=== PATIENT | male | born 1950 | race African-American/Black ===

== ENCOUNTER 2017-10-07 08:35 | Emergency (ER) | payer MEDICARE, OTHER ==
[~2017-10-07] VITALS: Ht 188 cm; Wt 91.7 kg
[~2017-10-07 08:35] MED LIST: CHOL500013 PO; FERR324T11 PO; METO-50 PO; PRAV80TA PO
[2017-10-07 08:38] VITALS: BP 100/58
--- NOTE | 2017-10-07 08:47 | NUR ---
Patient ambulated to bed 02.
--- NOTE | 2017-10-07 08:51 | NUR ---
67/M PRESENT TO ER C/O FAST HEART BEAT x 30 MINUTES AGO . PT STATES HE WAS JUST WALIKING AND STARTED FEEELING NAUSEAS. DENIES V/D OR HEART ISSUES. PT DENIES PAIN AT THIS TIME . PT STATES HE FELT THE SAME WAY ABOUT 3 YEARS AGO. AAOx4, BREATHING EVEN AND UNLABORED. ERMD NOTIFIED OF PATIENT STATUS.
--- NOTE | 2017-10-07 08:53 | NUR ---
Dr. Medina evaluating patient at bedside.
[2017-10-07] MEDS ORDERED: ADENOSINE 6 MG/2 ML VIAL IVP ONE ×2 (09:00→09:04)
--- NOTE | 2017-10-07 09:18 | NUR ---
XRAY AT BEDSIDE.
[2017-10-07 09:30] LABS: HEMATOCRIT 36.6 % (36-52); HEMOGLOBIN 11.9 g/dL (12.0-18.0); MEAN CORPUSCULAR HEMOGLOBIN 28 pg (27-31); MEAN CORPUSCULAR HGB CONC 33 g/dL (33-37); MEAN CORPUSCULAR VOLUME 86 fL (80-94); PLATELET COUNT (AUTO) 265 K/uL (140-450); RED BLOOD CELL COUNT(AUTO) 4.26 MIL/uL (4.20-6.10); RED CELL DISTRIBUTION WIDTH 12.2 % (11.6-13.7); WHITE BLOOD COUNT (AUTO) 5.5 K/uL (4.8-10.8)
[2017-10-07 09:37] LABS: ANION GAP 10.9 (8-16); CARBON DIOXIDE 27.1 mmol/L (21-32); CREATININE 1.1 mg/dL (0.7-1.3)
[2017-10-07 09:43] LABS: ALBUMIN 3.9 g/dL (3.4-5.0); MAGNESIUM 1.9 mg/dL (1.8-2.4); PHOSPHORUS 3.6 mg/dL (2.5-4.9); TOTAL BILIRUBIN 0.6 mg/dL (0.0-1.0)
[2017-10-07 09:46] LABS: EOSINOPHILS % (MANUAL) 2 % (0-4); LYMPHOCYTES % (MANUAL) 30 % (20-46); MONOCYTES % (MANUAL) 6 % (5-12)
[2017-10-07 09:51] LABS: CREATINE KINASE MB 0.4 ng/mL (0-3.6)
--- NOTE | 2017-10-07 10:00 | NUR ---
IV removed, catheter intact and site benign. Applied folded 4x4 gauze and tape to stop bleeding. PT TOELRATED PROCEDURE WELL.
[2017-10-07 10:13] VITALS: BP 125/88
--- NOTE | 2017-10-07 10:13 | NUR ---
Patient discharged with v/s stable. Written and verbal after care instructions given and explained. Patient verbalized understanding. Ambulatory with steady gait. All questions addressed prior to discharge. Advised to follow up with PMD.
== END 2017-10-07 10:13 | disposition home or self-care (01) ==
LOC: MED 08:35
DX: I47.1 Supraventricular tachycardia (principal); I10 Essential (primary) hypertension
CPT/HCPCS: 36415; 71010; 80053; 81002; 82550; 82553; 83735; 84100; 84484; 85025; 93005; 96374; 99285; J0153; J7030; Q0092

== ENCOUNTER 2017-11-18 11:09 | Emergency (ER) | payer MEDICARE, OTHER ==
[~2017-11-18] VITALS: Ht 188 cm; Wt 93.6 kg
[2017-11-18 11:11] VITALS: BP 134/92
[2017-11-18] MEDS ORDERED: ADENOSINE 6 MG/2 ML VIAL IVP ONE ×2 (11:25→12:45)
[2017-11-18] MEDS ORDERED: NACL 0.9% 1,000 ML IV ONE (12:05)
[2017-11-18 12:15] LABS: BASOPHILS # (AUTO) 0.2 K/uL (0.00-0.22); BASOPHILS % (AUTO) 2.4 % (0.0-2.0); EOSINOPHILS # (AUTO) 0.2 K/uL (0-0.4); EOSINOPHILS % (AUTO) 2.3 % (0.0-4.0); HEMATOCRIT 37.5 % (36-52); LYMPHOCYTES % (AUTO) 29.4 % (20.5-51.1); MEAN CORPUSCULAR HEMOGLOBIN 28 pg (27-31); MEAN CORPUSCULAR HGB CONC 32 g/dL (33-37); MEAN CORPUSCULAR VOLUME 86 fL (80-94); MONOCYTES # (AUTO) 0.8 K/uL (0.8-1.0); MONOCYTES % (AUTO) 11.4 % (1.7-9.3); NEUTROPHILS # (AUTO) 3.6 K/uL (1.8-7.7); NEUTROPHILS % (AUTO) 54.5 % (42.2-75.2); PLATELET COUNT (AUTO) 280 K/uL (140-450); RED BLOOD CELL COUNT(AUTO) 4.36 MIL/uL (4.20-6.10); RED CELL DISTRIBUTION WIDTH 12.1 % (11.6-13.7); WHITE BLOOD COUNT (AUTO) 6.8 K/uL (4.8-10.8)
[2017-11-18 12:35] LABS: ALBUMIN 3.9 g/dL (3.4-5.0); ANION GAP 15.3 (8-16); CARBON DIOXIDE 28.6 mmol/L (21-32); CREATININE 1.2 mg/dL (0.7-1.3); POTASSIUM 3.9 mmol/L (3.5-5.1); TOTAL BILIRUBIN 0.4 mg/dL (0.0-1.0)
--- NOTE | 2017-11-18 12:38 | NUR ---
PT ARRIVED IN ED AND WAS SEEN BY NURSE AT 1115. PT STATES HAVING PALPITATIONS AND FEELING OF FAST HR SINCE 10AM. AOX4. PT DENIES SOB, NAUSEA, VOMITING, CHEST PAIN SYSPNEA SINCE TIME OF EVENT. IV STARTED AND ADENOSINE PUSHED AT 11:25 FOLLOWED BY 20ML NS IVP. PT ON SALES TRAINEE AND PT MONITORED FOR 10 MIN AFTER RAPID IVP OF ADENOSINE. PT STATES HR SLOWED, NO CHEST PAIN, AND STATES FEELING BETTER. MD AND RN MONITORING CONINUOUS. AT THIS TIME VSS. NO ALOC, PT CONTINIUES TO DENIE SOB OR CHEST PAIN.
--- NOTE | 2017-11-18 13:05 | NUR ---
PT A&OX4. PT DENIES SOB OR CHEST PAIN. RESING IN POC. MD MORENO. CONTINUE TO MONITOR.
--- NOTE | 2017-11-18 13:10 | NUR ---
LATE ENTRY: ADENOSINE ADMINISTERED AT 11:25 FOLLOWED BY IMMEDIATE 20ML OF NS IVP, REAVALUATED AT 11:30. RN REAMINED AT BEDSIDE TO EVALUATE EFFECTIVENESS. DESIRED EFFECTIVENESS ACHIEVED WITH NO ADVERSE REACTIONS. MD AWARE. CONTINUE TO MONITOR.
[2017-11-18 14:06] VITALS: BP 142/93
--- NOTE | 2017-11-18 14:18 | NUR ---
Patient discharged with v/s stable. Continued to deny SOB, Chest pain, palpitations. A&Ox4. Written and verbal after care instructions given and explained. Patient verbalized understanding. Ambulatory with steady gait. All questions addressed prior to discharge. Advised to follow up with PMD.
== END 2017-11-18 14:18 | disposition home or self-care (01) ==
LOC: MED 11:09
DX: I47.1 Supraventricular tachycardia (principal); I10 Essential (primary) hypertension
CPT/HCPCS: 36415; 80053; 83690; 83880; 84484; 85025; 99284; J0153; 93005; J7030

== ENCOUNTER 2017-12-30 21:41 | Emergency (ER) | payer MEDICARE, OTHER ==
[~2017-12-30] VITALS: Ht 188 cm; Wt 93.2 kg
[2017-12-30 21:44] VITALS: BP 123/91
--- NOTE | 2017-12-30 21:48 | NUR ---
67/M CAME IN W C/O HEART PALPITATIONS. PT REPORTS HEART PALPITATIONS X 1 HOUR AGO, AWAKEN FROM SLEEP. PT AOX4, VERBAL. DENIES SOB/CP, REMAINS ASYMPTOMATIC. 16RR EVEN AND UNLABORED. PT REPORTS HISTORY OF SVT, HAS FOLLOW UP WITH CARDIO. PT PLACED ON EXHIBIT CLEANER. ER MD AKERS AT BEDSIDE PMH: DM, CANCER, SVT
--- NOTE | 2017-12-30 21:48 | NUR ---
Dr. Medina evaluating patient at bedside.
--- NOTE | 2017-12-30 21:48 | NUR ---
PT AMBULATED TO ER BED 1
[2017-12-30] MEDS ORDERED: ADENOSINE 6 MG/2 ML VIAL IVP ONE ×2 (21:55→21:57)
--- NOTE | 2017-12-30 21:59 | NUR ---
PT IN SVT, RATE 180S, PT AOX4, VERBAL. ADENOSINE 6MG IVP GIVEN. 2200 NSR AT 90'S
--- NOTE | 2017-12-30 21:59 | NUR ---
ADDENDUM: PT STATES " I FEEL BETTER", HR IN 90'S. ON CONTINUOUS MONITOR.
[2017-12-30 23:03] LABS: HEMATOCRIT 36.4 % (36-52); HEMOGLOBIN 11.8 g/dL (12.0-18.0); MEAN CORPUSCULAR HEMOGLOBIN 28 pg (27-31); MEAN CORPUSCULAR HGB CONC 33 g/dL (33-37); MEAN CORPUSCULAR VOLUME 86 fL (80-94); PLATELET COUNT (AUTO) 272 K/uL (140-450); RED BLOOD CELL COUNT(AUTO) 4.22 MIL/uL (4.20-6.10); RED CELL DISTRIBUTION WIDTH 12.6 % (11.6-13.7); WHITE BLOOD COUNT (AUTO) 6.3 K/uL (4.8-10.8)
[2017-12-30 23:09] LABS: LYMPHOCYTES % (MANUAL) 32 % (20-46); MONOCYTES % (MANUAL) 12 % (5-12)
[2017-12-30 23:11] LABS: ANION GAP 10.1 (8-16); CARBON DIOXIDE 28.9 mmol/L (21-32); CREATININE 0.9 mg/dL (0.7-1.3)
[2017-12-30 23:18] LABS: ALBUMIN 3.5 g/dL (3.4-5.0); PHOSPHORUS 3.5 mg/dL (2.5-4.9); TOTAL BILIRUBIN 0.4 mg/dL (0.0-1.0)
[2017-12-30 23:32] VITALS: BP 131/80
--- NOTE | 2017-12-30 23:32 | NUR ---
Patient discharged with v/s stable. Written and verbal after care instructions given and explained. Patient verbalized understanding. Ambulatory with steady gait. All questions addressed prior to discharge. Advised to follow up with PMD. IV removed, catheter intact and site benign. Applied folded 4x4 gauze and tape to stop bleeding.
[2017-12-30] MEDS ORDERED: NACL 0.9% 1,000 ML IV ONE (23:50)
== END 2017-12-30 23:32 | disposition home or self-care (01) ==
LOC: MED 21:41
DX: I47.1 Supraventricular tachycardia (principal); I10 Essential (primary) hypertension
CPT/HCPCS: 36415; 71045; 80053; 82550; 82553; 83735; 84100; 84484; 85025; 93005; 96361; 96374; 99285; J0153; J7030; Q0092

== ENCOUNTER 2018-01-20 17:24 | Emergency (ER) | payer MEDICARE, OTHER ==
[~2018-01-20] VITALS: Ht 185.4 cm; Wt 91.8 kg
[2018-01-20 17:46] VITALS: BP 101/68
--- NOTE | 2018-01-20 18:05 | NUR ---
Pt presents to ED c/o palpitations x1 day. Pt felt as he had previously when he had SVT in the past. Pt HR 166. A&Ox4. Pt states no pain, n/v, or chest pain. ERMD aware. Continue to montitor.
--- NOTE | 2018-01-20 18:06 | NUR ---
PT AMBULATED TO BED 10
[2018-01-20] MEDS ORDERED: ONDANSETRON 4 MG/2 ML VIAL IVP ONE (18:30)
[2018-01-20] MEDS ORDERED: LORazepam 2 MG/ML VIAL IVP ONE (18:30)
[2018-01-20] MEDS ORDERED: ASPIRIN 325 MG TAB PO ONE (18:30)
[2018-01-20 18:52] LABS: BASOPHILS # (AUTO) 0.2 K/uL (0.00-0.22); EOSINOPHILS # (AUTO) 0.1 K/uL (0-0.4); HEMATOCRIT 39.2 % (36-52); HEMOGLOBIN 12.2 g/dL (12.0-18.0); LYMPHOCYTES # (AUTO) 1.5 K/uL (2.0-11.5); MEAN CORPUSCULAR HEMOGLOBIN 27 pg (27-31); MEAN CORPUSCULAR HGB CONC 31 g/dL (33-37); MEAN CORPUSCULAR VOLUME 86 fL (80-94); MONOCYTES # (AUTO) 0.6 K/uL (0.8-1.0); NEUTROPHILS # (AUTO) 3.3 K/uL (1.8-7.7); PLATELET COUNT (AUTO) 301 K/uL (140-450); RED BLOOD CELL COUNT(AUTO) 4.55 MIL/uL (4.20-6.10); RED CELL DISTRIBUTION WIDTH 12.3 % (11.6-13.7); WHITE BLOOD COUNT (AUTO) 5.7 K/uL (4.8-10.8)
[2018-01-20 19:06] LABS: ANION GAP 10.8 (8-16); CARBON DIOXIDE 28.3 mmol/L (21-32); POTASSIUM 4.1 mmol/L (3.5-5.1)
[2018-01-20 19:12] LABS: ALBUMIN 3.8 g/dL (3.4-5.0); TOTAL BILIRUBIN 0.4 mg/dL (0.0-1.0)
[2018-01-20 19:17] LABS: PROTHROMBIN TIME 10.6 secs (10.8-13.4)
--- NOTE | 2018-01-20 19:18 | NUR ---
REPORT RECEIVED FROM GUS PRADO RN
[2018-01-20 19:20] LABS: FREE T4 (FREE THYROXINE) 1.07 ng/dL (0.76-1.46); MAGNESIUM 2.2 mg/dL (1.8-2.4); THYROID STIMULATING HORMONE 1.94 uIU/mL (0.34-3.74)
--- NOTE | 2018-01-20 19:25 | NUR ---
REPORT RECEIVED FROM DARCI WEBER
--- NOTE | 2018-01-20 19:28 | NUR ---
Sanjay peterson in [facility] - 01/20/18 at 1954 by TAMARA REPORT RECEIVED FROM DARCI WEBER
[2018-01-20 20:33] VITALS: BP 140/91
== END 2018-01-20 20:37 | disposition home or self-care (01) ==
LOC: MED 17:24
DX: N39.0 Urinary tract infection, site not specified (principal); I10 Essential (primary) hypertension; E03.9 Hypothyroidism, unspecified; I47.1 Supraventricular tachycardia
CPT/HCPCS: 36415; 71045; 80053; 81002; 83735; 83880; 84439; 84443; 84479; 84484; 85025; 85610; 85730; 93005; 96374; 96375; 99285; J2060; J2405; Q0092

== ENCOUNTER 2018-03-20 16:09 | Inpatient (IN) | payer OTHER, MEDICARE ==
[~2018-03-20] VITALS: Ht 188 cm; Wt 93.0 kg
[2018-03-20 16:13] VITALS: BP 183/94
[2018-03-20] MEDS ORDERED: ASPIRIN 325 MG TAB PO ONE (16:25)
[2018-03-20] MEDS ORDERED: ONDANSETRON 4 MG/2 ML VIAL IVP ONE (16:25)
--- NOTE | 2018-03-20 16:25 | NUR ---
PT AMBULATED TO BED 11
--- NOTE | 2018-03-20 16:28 | NUR ---
67 YO M WITH CO PALPITATIONS X3 DAYS. DENIES ANY CP, SOB , COUGH , FEVER AT THIS TIME . PT STATES A FLUTTER FEELING. EKG NSR WITH UNI FOCAL PVCs PER DR BATISTA. EVEN UNLABORED BREATHING, LUNGS CLEAR THROUGH OUT. HEART GALLOP NOTED UPON ASCALTATION. PT POSITIONED FOR COMFORT. ER MD MADE AWARE. WILL CONTINUE TO MONITOR.
--- NOTE | 2018-03-20 16:33 | NUR ---
Patient being evaluated by physician at bedside.
[2018-03-20] MEDS ORDERED: HYDR2TAB6 PO (16:43)
[2018-03-20] MEDS ORDERED: BICA50TA1 PO (16:43)
[2018-03-20] MEDS ORDERED: NACL 0.9% 1,000 ML IV ONE (16:50)
[2018-03-20] MEDS ORDERED: LORazepam 2 MG/ML VIAL IVP ONE (16:50)
[2018-03-20 17:33] LABS: BASOPHILS % (AUTO) 0.6 % (0.0-2.0); EOSINOPHILS # (AUTO) 0.1 K/uL (0-0.4); EOSINOPHILS % (AUTO) 1.6 % (0.0-4.0); HEMOGLOBIN 12.2 g/dL (12.0-18.0); LYMPHOCYTES # (AUTO) 1.6 K/uL (2.0-11.5); LYMPHOCYTES % (AUTO) 24.5 % (20.5-51.1); MEAN CORPUSCULAR HEMOGLOBIN 27 pg (27-31); MEAN CORPUSCULAR HGB CONC 32 g/dL (33-37); MEAN CORPUSCULAR VOLUME 85.4 fL (80-94); MONOCYTES # (AUTO) 0.6 K/uL (0.8-1.0); MONOCYTES % (AUTO) 9.6 % (1.7-9.3); NEUTROPHILS # (AUTO) 4.1 K/uL (1.8-7.7); NEUTROPHILS % (AUTO) 63.7 % (42.2-75.2); PLATELET COUNT (AUTO) 283 K/uL (140-450); RED BLOOD CELL COUNT(AUTO) 4.45 MIL/uL (4.20-6.10); RED CELL DISTRIBUTION WIDTH 13.3 % (11.6-13.7); WHITE BLOOD COUNT (AUTO) 6.4 K/uL (4.8-10.8)
[2018-03-20 17:42] LABS: BARBITURATE, URINE NEG. ng/ml (NEG <=200); BENZODIAZEPINE, URINE NEG. ng/mL (NEG <=200); CANNABINOID, URINE NEG. ng/mL (NEG <=50); COCAINE, URINE NEG. ng/mL (NEG <=300); OPIATE, URINE NEG. ng/mL (NEG <=2000); PHENCYCLIDINE SCREEN,URINE NEG. ng/mL (NEG <=25)
[2018-03-20 17:54] LABS: PROTHROMBIN TIME 10.2 secs (10.8-13.4)
--- NOTE | 2018-03-20 17:56 | NUR ---
SEMI-SCHAEFFER'S AWAKE ALERT-RESTING WITH HANDS FOLDED OVER ABDOMEN AND FEET CROSSED. DENIES CP NO HEADACHE OR SOB AT THIS TIME---AWAITS DISPO WILL CONTINUE TO MONITOR FOR ECG CHANGES
[2018-03-20 17:57] LABS: ALBUMIN 4.2 g/dL (3.4-5.0); ANION GAP 12.3 (8-16); CARBON DIOXIDE 28.6 mmol/L (21-32); CREATININE 0.9 mg/dL (0.7-1.3); POTASSIUM 3.9 mmol/L (3.5-5.1); TOTAL BILIRUBIN 0.4 mg/dL (0.0-1.0)
[2018-03-20 17:59] LABS: MAGNESIUM 2.2 mg/dL (1.8-2.4); THYROID STIMULATING HORMONE 1.16 uIU/mL (0.34-3.74)
[2018-03-20] MEDS ORDERED: NACL 0.9% 1,000 ML IV SCH (18:57)
[2018-03-20] MEDS ORDERED: MORPHINE SULFATE 2 MG/ML SYR IVP PRN (19:00)
[2018-03-20] MEDS ORDERED: DOCUSATE SODIUM 100 MG GELCAP PO PRN (19:00)
[2018-03-20] MEDS ORDERED: ACETAMINOPHEN 325 MG TAB PO PRN ×2 (19:00→19:35)
[2018-03-20] MEDS ORDERED: ONDANSETRON 4 MG/2 ML VIAL IM/IVP PRN (19:00)
[2018-03-20] MEDS ORDERED: HYDROcodone/APAP 7.5/325 MG 1 TAB PO PRN (19:00)
[2018-03-20] MEDS: NACL 0.9% 1,000 ML IV SCH (19:32)
[2018-03-20 19:33] LABS: CHOL/HDL RATIO 3.7 (1-4.5); PHOSPHORUS 2.9 mg/dL (2.5-4.9); THYROID STIMULATING HORMONE 1.17 uIU/mL (0.34-3.74)
[2018-03-20] MEDS ORDERED: ONDANSETRON 4 MG/2 ML VIAL IVP PRN (19:35)
[2018-03-20] MEDS ORDERED: HYDROcodone/APAP 5/325 MG 1 TAB TAB PO PRN ×2 (19:35)
[2018-03-20] MEDS ORDERED: LORazepam 2 MG/ML VIAL IVP PRN (19:35)
--- NOTE | 2018-03-20 19:41 | NUR ---
Pt report given to SHERMAN BEJARANO. Transfer of care at this time.
[2018-03-20] MEDS ORDERED: HYDROmorphone 2 MG TAB PO PRN (19:45)
[2018-03-20 20:15] VITALS: BP 137/78
--- NOTE | 2018-03-20 20:25 | NUR ---
RECEIVED PT FROM ER VIA JUNE PT IS AAOX4 AMULATORY IV ON RT AC INFUSING WELL ON TELEMETRY SR AND PVC , SKIN INTACT M RSA NARES PROTOCOL TAKEN AND SENT TO LAB , DENIES ANY PAIN AT THIS LTIME PT IS ORIENTED TOTHE FLOOR CALL LIGHT WITHIN REACH
[2018-03-20] MEDS: METOPROLOL 50 MG TAB PO SCH (21:33)
--- NOTE | 2018-03-20 22:00 | NUR ---
PT SLEEPING WELL NOTDISTRESSNOTED ON TELEMETRY SR
[2018-03-21] VITALS: BP 153/85
[2018-03-21 01:26] LABS: CREATINE KINASE MB 0.6 ng/mL (0-3.6)
--- NOTE | 2018-03-21 02:00 | NUR ---
PT AMBULATORY DENIES ANY DISCOMFORT AT THIS TIME IV ON RT AC INFUSING WELL ON TELMETRY SR
[2018-03-21 04:00] VITALS: BP 145/92
[2018-03-21] MEDS: NACL 0.9% 1,000 ML IV SCH ×2 (05:56→22:12)
--- NOTE | 2018-03-21 06:00 | NUR ---
PT HAS BEEN MONITORING CLOSE NOT DISTRESSNOTED ON TELMETRY SR
[2018-03-21 06:20] LABS: T4 (THYROXINE) 7.9 ug/dL (4.5-12.0)
--- NOTE | 2018-03-21 07:10 | NUR ---
RECEIVED REPORT FROM SENIOR ANALYTIC CONSULTANT RN. PATIENT IS AAOX4, NO SIGNS AND SYMPTOMS OF ACUTE DISTRESS NOTED AT THIS TIME. HAS IV TO THE RIGHT AC 20G INFUSING NS AT 75 ML/HR, SITE IS CLEAN, DRY, PATENT AND INTACT. DISCUSSED PLAN OF CARE WITH PATIENT AND HE VERBALIZED UNDERSTANDING. BED IN LOWEST POSITION, SIDE RAILS UP X2, CALL LIGHT WITHIN REACH. WILL CONTINUE TO MONITOR.
[2018-03-21 07:54] VITALS: BP 143/87
--- NOTE | 2018-03-21 09:14 | NUR ---
PATIENT HAS BEEN SCREENED AND CATEGORIZED MODERATE NUTRITION RISK. PATIENT WILL BE SEEN WITHIN 3-5 DAYS OF ADMISSION. 03/23/18 03/25/[address]
[2018-03-21] MEDS: ASPIRIN 81 MG TAB.CHEW PO SCH (09:38)
[2018-03-21] MEDS: METOPROLOL 50 MG TAB PO SCH ×2 (09:39→21:15)
[2018-03-21] MEDS: ENOXAPARIN 30 MG/0.3 ML SYR SUBQ SCH (09:43)
[2018-03-21] MEDS: BICALUTAMIDE 50 MG TAB PO SCH (09:44)
[2018-03-21 10:03] LABS: BASOPHILS % (AUTO) 0.2 % (0.0-2.0); EOSINOPHILS % (AUTO) 0.7 % (0.0-4.0); HEMATOCRIT 36.3 % (36-52); HEMOGLOBIN 11.5 g/dL (12.0-18.0); LYMPHOCYTES # (AUTO) 0.8 K/uL (2.0-11.5); LYMPHOCYTES % (AUTO) 16.1 % (20.5-51.1); MEAN CORPUSCULAR HEMOGLOBIN 27 pg (27-31); MEAN CORPUSCULAR HGB CONC 32 g/dL (33-37); MEAN CORPUSCULAR VOLUME 85.8 fL (80-94); MONOCYTES # (AUTO) 0.3 K/uL (0.8-1.0); NEUTROPHILS # (AUTO) 3.8 K/uL (1.8-7.7); PLATELET COUNT (AUTO) 267 K/uL (140-450); RED BLOOD CELL COUNT(AUTO) 4.22 MIL/uL (4.20-6.10); RED CELL DISTRIBUTION WIDTH 13.1 % (11.6-13.7); WHITE BLOOD COUNT (AUTO) 4.9 K/uL (4.8-10.8)
[2018-03-21 10:17] LABS: MAGNESIUM 2.2 mg/dL (1.8-2.4); PHOSPHORUS 2.5 mg/dL (2.5-4.9)
[2018-03-21 10:26] LABS: ALBUMIN 3.6 g/dL (3.4-5.0); CARBON DIOXIDE 26.9 mmol/L (21-32); CREATININE 0.9 mg/dL (0.7-1.3); POTASSIUM 3.9 mmol/L (3.5-5.1); TOTAL BILIRUBIN 0.4 mg/dL (0.0-1.0)
[2018-03-21 10:29] LABS: CREATINE KINASE MB 0.7 ng/mL (0-3.6)
[2018-03-21 12:00] VITALS: BP 138/81
--- NOTE | 2018-03-21 15:41 | NUR ---
FAXED INITIAL REVIEW TO [facility] [phone] PHONE REBECA [phone]
[2018-03-21 16:00] VITALS: BP 127/85
--- NOTE | 2018-03-21 16:02 | NUR ---
SPOKE WITH Mimi VERDIN IN REGARDS TO PATIENTS COMPLAINTS OF PALPITATIONS. ASKED FOR PATIENTS HEART RATE ON THE MONITOR AND IT WAS 78. HE DIDN'T FIND THE NEED TO ORDER ANY NEW MEDICATIONS AT THIS TIME. WILL CONTINUE TO MONITOR PATIENT.
--- NOTE | 2018-03-21 19:30 | NUR ---
ENDORSED PATIENT TO HEARING IMPAIRED ITINERANT TEACHER RN FOR CONTINUITY OF CARE. PATIENT IN STABLE CONDITION.
--- NOTE | 2018-03-21 19:31 | NUR ---
RECD. RESTING IN BED, AWAKE, A/OX4, RESPIRATION EVEN AND UNLABORED. IV OF NS AT 75 ML/HR INFUSING, LEFT FOREARM G20. COMPLAINT OF PALPITATIONS, ASSURED THAT FLIGHT OPERATION COORDINATOR DR. DENNEY IS AWARE OF IT REPORTED [place] AM NURSE. ADVISED TO OPEN UP TO MD ALL HIS CONCERN WHEN HE MAKE ROUNDS TOMORROW. PLAN OF CARE FOR THE SHIFT DISCUSSED. VERBALIZED UNDERSTANDING. DENIES PAIN 0/10.
[2018-03-21 20:00] VITALS: BP 142/89
[2018-03-21] MEDS ORDERED: ATORVASTATIN 20 MG TAB PO SCH (21:00)
--- NOTE | 2018-03-21 21:15 | NUR ---
DUE PO MEDICATIONS GIVEN. WATCHING TV.
[2018-03-22] VITALS: BP 135/88
--- NOTE | 2018-03-22 | NUR ---
SLEEPING COMFORTABLY IN BED.
--- NOTE | 2018-03-22 00:34 | NUR ---
Patient's Plan of Care was discussed and reviewed with WARP SPINNER: JAVY WINSLOW
[2018-03-22] MEDS: NACL 0.9% 1,000 ML IV SCH (00:40)
[2018-03-22 04:00] VITALS: BP 135/85
--- NOTE | 2018-03-22 06:00 | NUR ---
AWAKE IN BED, STILL WORRIED ABOUT HIS PALPITATIONS. ADVISED TO RELAX AND WAIT FOR CAFETERIA SUPERVISOR TO COME.
--- NOTE | 2018-03-22 07:27 | NUR ---
CONDITION REMAIN STABLE. NO COMPLAINT OF PAIN DURING SHIFT. ENDORSED TO AM NURSE FOR CONTINUITY OF CARE.
--- NOTE | 2018-03-22 07:28 | NUR ---
RECEIVED REPORT FROM HOGSHEAD COOPER RN. PATIENT IS AAOX4, NO SIGNS AND SYMPTOMS OF ACUTE DISTRESS NOTED AT THIS TIME. HAS IV TO THE LEFT FA 20G INFUSING NS AT 75 ML/HR, SITE IS CLEAN, DRY, PATENT AND INTACT. DISCUSSED PLAN OF CARE WITH PATIENT AND HE VERBALIZED UNDERSTANDING. BED IN LOWEST POSITION, SIDE RAILS UP X2, CALL LIGHT WITHIN REACH. WILL CONTINUE TO MONITOR.
[2018-03-22 08:00] VITALS: BP 150/91
[2018-03-22] MEDS: ASPIRIN 81 MG TAB.CHEW PO SCH (08:42)
[2018-03-22] MEDS: BICALUTAMIDE 50 MG TAB PO SCH (08:43)
[2018-03-22] MEDS: METOPROLOL 50 MG TAB PO SCH (08:43)
[2018-03-22] MEDS: ENOXAPARIN 30 MG/0.3 ML SYR SUBQ SCH (08:46)
--- NOTE | 2018-03-22 08:49 | NUR ---
ADMINISTERED MORNING MEDICATIONS. PATIENT TOLERATED WELL. WILL CONTINUE TO MONITOR.
[2018-03-22] MEDS ORDERED: LOSARTAN 25 MG TAB PO SCH (09:00)
--- NOTE | 2018-03-22 12:50 | NUR ---
DISCHARGE ORDER IS IN PLACE. GAVE PATIENT INSTRUCTION TO FOLLOW UP WITH PRIMARY CARE PHYSICIAN, AND CRIPPLE CHASER. INFORMED HIM TO CONTINUE TAKING HIS HOME MEDICATIONS. PATIENT VERBALIZED UNDERSTANDING. IV REMOVED AT THIS TIME. ID BANDS REMOVED. ALL BELONGINGS ARE WITH PATIENT. PATIENT IN STABLE CONDITION AT THIS TIME. WILL WALK OUT WITH THE PATIENT.
--- NOTE | 2018-03-22 14:06 | NUR ---
clinical note faxed to [facility].
--- NOTE | 2018-03-26 16:14 | NUR ---
Bone Grinder Note: I faxed discharge summary to [facility], fax # .
== END 2018-03-22 12:50 | disposition home or self-care (01) | DRG 201 ==
LOC: MED 16:09 → MTU 19:14
PROVIDERS: ADMIT Hospitalist; ATTEND Hospitalist
DX: I49.3 Ventricular premature depolarization (principal); I42.9 Cardiomyopathy, unspecified; I11.9 Hypertensive heart disease without heart failure; I47.1 Supraventricular tachycardia; E78.5 Hyperlipidemia, unspecified; Z85.850 Personal history of malignant neoplasm of thyroid; R07.9 Chest pain, unspecified; Z79.899 Other long term (current) drug therapy
CPT/HCPCS: 36415; 71045; 80053; 80305; 82150; 82550; 82553; 83036; 83690; 83735; 83880; 84100; 84436; 84439; 84443; 84479; 84484; 85025; 85379; 85610; 85730; 87081; 93005; 96374; 96375; 99285; G0482; J1650; J2060; J2405; J7030; Q0092

== ENCOUNTER 2018-03-28 20:41 | Emergency (ER) | payer MEDICARE, OTHER ==
[~2018-03-28] VITALS: Ht 188 cm; Wt 90.3 kg
[~2018-03-28 20:41] MED LIST changes: +BICA50TA1 PO; -CHOL500013 PO; -FERR324T11 PO; +HYDR2TAB6 PO; -PRAV80TA PO
[2018-03-28 20:43] VITALS: BP 142/97
[2018-03-28 22:26] LABS: BASOPHILS % (AUTO) 0.4 % (0.0-2.0); EOSINOPHILS # (AUTO) 0.1 K/uL (0-0.4); EOSINOPHILS % (AUTO) 1.1 % (0.0-4.0); HEMATOCRIT 37.6 % (36-52); LYMPHOCYTES # (AUTO) 1.5 K/uL (2.0-11.5); LYMPHOCYTES % (AUTO) 25.9 % (20.5-51.1); MEAN CORPUSCULAR HEMOGLOBIN 27 pg (27-31); MEAN CORPUSCULAR HGB CONC 32 g/dL (33-37); MEAN CORPUSCULAR VOLUME 85.2 fL (80-94); MONOCYTES # (AUTO) 0.6 K/uL (0.8-1.0); MONOCYTES % (AUTO) 11.2 % (1.7-9.3); NEUTROPHILS # (AUTO) 3.5 K/uL (1.8-7.7); NEUTROPHILS % (AUTO) 61.4 % (42.2-75.2); PLATELET COUNT (AUTO) 289 K/uL (140-450); RED BLOOD CELL COUNT(AUTO) 4.42 MIL/uL (4.20-6.10); RED CELL DISTRIBUTION WIDTH 12.9 % (11.6-13.7); WHITE BLOOD COUNT (AUTO) 5.7 K/uL (4.8-10.8)
[2018-03-28 22:40] LABS: ANION GAP 14.9 (8-16); CARBON DIOXIDE 25.6 mmol/L (21-32); CREATININE 0.9 mg/dL (0.7-1.3); POTASSIUM 3.5 mmol/L (3.5-5.1)
[2018-03-28 22:45] LABS: CHOL/HDL RATIO 2.7 (1-4.5)
[2018-03-28 22:46] LABS: ALBUMIN 3.8 g/dL (3.4-5.0); TOTAL BILIRUBIN 0.6 mg/dL (0.0-1.0)
[2018-03-28 22:57] LABS: CREATINE KINASE MB 0.6 ng/mL (0-3.6)
[2018-03-29 00:04] VITALS: BP 122/77
== END 2018-03-29 00:04 | disposition home or self-care (01) ==
LOC: MED 20:41
DX: R00.2 Palpitations (principal); I10 Essential (primary) hypertension; Z85.850 Personal history of malignant neoplasm of thyroid
CPT/HCPCS: 36415; 71045; 80053; 82550; 82553; 83880; 84484; 85025; 85379; 93005; 99285

== ENCOUNTER 2018-10-30 08:01 | Emergency (ER) | payer MEDICARE, OTHER ==
[~2018-10-30] VITALS: Ht 188 cm; Wt 98.4 kg
[~2018-10-30 08:01] MED LIST changes: -BICA50TA1 PO; +BICA50TA47 PO
--- NOTE | 2018-10-30 08:04 | NUR ---
PT AMBULATED TO ER BED 05
[2018-10-30 08:07] VITALS: BP 99/71
--- NOTE | 2018-10-30 08:10 | NUR ---
68Y/M BIB SELF C/O PALPITATION THIS MORNING, PT DENIES CP, SOB, OR DIZZINESS AT THIS TIME. BED DOWN, BEDRAIL UP X 1, ER MD AWARE AND NOTIFIED OF PT STATUS. HX;THYROID CA 3YRS CHEMO TREATMENT, HTN RX;XTANDI, DILAUDID, METOPROLOL
[2018-10-30] MEDS ORDERED: METOPROLOL 5 MG/5 ML VIAL IVP ONE (08:20)
[2018-10-30] MEDS ORDERED: ADENOSINE 6 MG/2 ML VIAL IVP ONE (08:20)
[2018-10-30 09:06] LABS: BASOPHILS # (AUTO) 0.1 K/uL (0.00-0.22); BASOPHILS % (AUTO) 1.4 % (0.0-2.0); EOSINOPHILS # (AUTO) 0.1 K/uL (0-0.4); EOSINOPHILS % (AUTO) 2.4 % (0.0-4.0); HEMATOCRIT 38.6 % (36-52); HEMOGLOBIN 12.1 g/dL (12.0-18.0); LYMPHOCYTES # (AUTO) 1.3 K/uL (2.0-11.5); LYMPHOCYTES % (AUTO) 26.7 % (20.5-51.1); MEAN CORPUSCULAR HEMOGLOBIN 27 pg (27-31); MEAN CORPUSCULAR HGB CONC 32 g/dL (33-37); MEAN CORPUSCULAR VOLUME 84.5 fL (80-94); MONOCYTES # (AUTO) 0.5 K/uL (0.8-1.0); MONOCYTES % (AUTO) 9.6 % (1.7-9.3); NEUTROPHILS # (AUTO) 2.9 K/uL (1.8-7.7); NEUTROPHILS % (AUTO) 59.9 % (42.2-75.2); PLATELET COUNT (AUTO) 297 K/uL (140-450); RED BLOOD CELL COUNT(AUTO) 4.56 MIL/uL (4.20-6.10); RED CELL DISTRIBUTION WIDTH 13.2 % (11.6-13.7); WHITE BLOOD COUNT (AUTO) 4.9 K/uL (4.8-10.8)
--- NOTE | 2018-10-30 09:17 | NUR ---
PT RESTING IN BED WITH VSS AT THIS TIME
[2018-10-30 09:22] LABS: APPEARANCE,URINE CLEAR (CLEAR); BILIRUBIN,URINE NEGATIVE (NEGATIVE); BLOOD, URINE NEGATIVE (NEGATIVE); COLOR,URINE YELLOW (YELLOW); LEUKOCYTE ESTERASE ,URINE NEGATIVE (NEGATIVE); NITRITE, URINE NEGATIVE (NEGATIVE); PH,URINE 7.5 (5.0-9.0); UGLUCOSE NEGATIVE (NEGATIVE)
[2018-10-30 09:23] LABS: ANION GAP 15.4 (8-16); CARBON DIOXIDE 24.9 mmol/L (21-32); POTASSIUM 3.3 mmol/L (3.5-5.1)
[2018-10-30 09:24] LABS: MAGNESIUM 1.9 mg/dL (1.8-2.4)
[2018-10-30 09:26] LABS: PROTHROMBIN TIME 9.9 secs (10.8-13.4)
[2018-10-30 09:29] LABS: ALBUMIN 3.8 g/dL (3.4-5.0); TOTAL BILIRUBIN 0.5 mg/dL (0.0-1.0)
[2018-10-30 09:37] LABS: RBC,URINE 0-5 (RARE) /HPF (0-5)
[2018-10-30 09:41] LABS: BARBITURATE, URINE NEG. ng/ml (NEG <=200); BENZODIAZEPINE, URINE NEG. ng/mL (NEG <=200); CANNABINOID, URINE NEG. ng/mL (NEG <=50); COCAINE, URINE NEG. ng/mL (NEG <=300); OPIATE, URINE NEG. ng/mL (NEG <=2000); PHENCYCLIDINE SCREEN,URINE NEG. ng/mL (NEG <=25)
[2018-10-30 09:50] LABS: FREE T4 (FREE THYROXINE) 1.2 ng/dL (0.76-1.46); THYROID STIMULATING HORMONE 1.2 uIU/mL (0.34-3.74)
[2018-10-30 10:27] VITALS: BP 140/95
== END 2018-10-30 10:29 | disposition home or self-care (01) ==
LOC: MED 08:01
DX: I47.1 Supraventricular tachycardia (principal); Z85.850 Personal history of malignant neoplasm of thyroid; I10 Essential (primary) hypertension; Z79.899 Other long term (current) drug therapy
CPT/HCPCS: 36415; 71045; 80053; 80305; 81001; 83735; 83880; 84439; 84443; 84479; 84484; 85025; 85379; 85610; 85730; 87086; 93005; 96374; 96375; 99284; G0482; J0153; J3490; Q0092

== ENCOUNTER 2018-11-08 15:37 | Emergency (ER) | payer MEDICARE, OTHER ==
[~2018-11-08] VITALS: Ht 188 cm; Wt 97.5 kg
[2018-11-08 15:47] VITALS: BP 139/88
--- NOTE | 2018-11-08 15:56 | NUR ---
68/m bib self c/o heart pulpitationx today. treated for svt. denies chest pain,denies sob,denies dizziness. hx: svt.lt.neck lymphoma.takes same meds. DENIES N/V/D; SKIN IS PINK/WARM/DRY; AAOX4 WITH EVEN AND STEADY GAIT; LUNGS CLEAR BL; HR tachy 179/mins PT DENIES ANY FEVER, CP, SOB, OR COUGH AT THIS TIME; PATIENT STATES PAIN OF 0/10 AT THIS TIME; PATIENT POSITIONED FOR COMFORT; HOB ELEVATED; BEDRAILS UP X2; BED DOWN. ER MD MADE AWARE OF PT STATUS.
--- NOTE | 2018-11-08 15:57 | NUR ---
Patient being evaluated by DR GOFF at bedside.
[2018-11-08] MEDS ORDERED: ADENOSINE 6 MG/2 ML VIAL IVP ONE (16:00)
--- NOTE | 2018-11-08 16:26 | NUR ---
Patient appears to be resting comfortably in bed. Vital Signs within normal limits. Respirations even and unlabored.WILL CONTINUE TO MONITOR.
[2018-11-08 18:24] VITALS: BP 133/81
--- NOTE | 2018-11-08 18:24 | NUR ---
Patient discharged with v/s stable. Written and verbal after care instructions given and explained. Patient verbalized understanding. Ambulatory with steady gait. All questions addressed prior to discharge. IV D/C; pressure and bandage applied. Advised to follow up with PMD.
== END 2018-11-08 18:24 | disposition home or self-care (01) ==
LOC: MED 15:37
DX: R00.2 Palpitations (principal); I10 Essential (primary) hypertension; Z85.850 Personal history of malignant neoplasm of thyroid; Z79.899 Other long term (current) drug therapy
CPT/HCPCS: 81002; 93005; 96374; 99283; J0153

== ENCOUNTER 2018-12-26 12:51 | Emergency (ER) | payer MEDICARE, OTHER ==
[~2018-12-26] VITALS: Ht 188 cm; Wt 98.9 kg
[2018-12-26 12:57] VITALS: BP 104/81
--- NOTE | 2018-12-26 13:15 | NUR ---
PATIENT PRESENTS TO ED WITH THE CHIEF C/O PALPITATION SINCE [address] BY [address] GOFF. PERFORMED VALSALVA MANEUVER. DENIES N/V/D; SKIN IS PINK/WARM/DRY; AAOX4 WITH EVEN AND STEADY GAIT. LUNGS CLEAR BL. HR EVEN AND REGULAR; PT DENIES ANY FEVER, CP, SOB, OR COUGH AT THIS TIME; PATIENT STATES PAIN OF 0/10 AT THIS TIME. PATIENT POSITIONED FOR COMFORT; HOB ELEVATED; BEDRAILS UP X2; BED DOWN.
--- NOTE | 2018-12-26 13:25 | NUR ---
HR 106 AT THIS TIME.
[2018-12-26 14:45] VITALS: BP 104/81
== END 2018-12-26 14:45 | disposition home or self-care (01) ==
LOC: MED 12:51
DX: I47.1 Supraventricular tachycardia (principal); Z85.850 Personal history of malignant neoplasm of thyroid; Z79.891 Long term (current) use of opiate analgesic
CPT/HCPCS: 93005; 99283

== ENCOUNTER 2019-09-30 04:46 | Emergency (ER) | payer MEDICARE, OTHER ==
[~2019-09-30] VITALS: Ht 188 cm; Wt 98.9 kg
[~2019-09-30 04:46] MED LIST changes: +METO-251 PO; -METO-50 PO
[2019-09-30 04:50] VITALS: BP 95/74
--- NOTE | 2019-09-30 04:50 | NUR ---
to bed # 10 ambulatory
[2019-09-30 04:53] VITALS: BP 95/74
--- NOTE | 2019-09-30 04:53 | NUR ---
69 Y/O MALE PRESENTS TO ED WITH COMPLAINTS OF ELEVATED HEART RATE. PATIENT REPORTS SLEEPING AND WOKE UP WITH FEELINGS OF INCREASED HEART RATE. DENIES N/V/D/C. REPORTS A SLIGHT HEADACHE. ER MD AWARE AND AT BEDSIDE TO ASSESS PATIENT. PATIENT REPORTS TAKING PRESCRIBED ATENOLOL AND IT DID NOT RELIEVE SYMPTOMS. PATIENT CONNECTED TO MONITOR. SIDERAILS UPx1. WILL CONTINUE TO MONITOR.
--- NOTE | 2019-09-30 04:56 | NUR ---
EKG PERFORMED AT BEDSIDE PER DR COELHO
[2019-09-30] MEDS ORDERED: ADENOSINE 6 MG/2 ML VIAL IVP ONE (05:00)
--- NOTE | 2019-09-30 05:05 | NUR ---
SECOND EKG PERFORMED AT BEDSIDE PER DR COELHO
== END 2019-09-30 05:13 | disposition home or self-care (01) ==
LOC: MED 04:46
DX: I47.1 Supraventricular tachycardia (principal); I10 Essential (primary) hypertension; Z85.850 Personal history of malignant neoplasm of thyroid; Z79.899 Other long term (current) drug therapy
CPT/HCPCS: 96374; 99283; J0153

== ENCOUNTER 2019-11-21 09:06 | Emergency (ER) | payer MEDICARE, OTHER ==
[~2019-11-21] VITALS: Ht 188 cm; Wt 102.1 kg
--- NOTE | 2019-11-21 09:13 | NUR ---
Pt taken back to bed 7 triaged at bedside.
[2019-11-21 09:15] VITALS: BP 98/63
--- NOTE | 2019-11-21 09:20 | NUR ---
C/O PALPITATIONS SINCE 529 THIS MORNING, DENIES CHEST PAIN OR SOB, GCS 15. PT STATED HE HAS THIS SITUATION ONCE IN A WHILE HX HTN RX METROPOLOL 25MG BID STATES HE TOOK A PILL THIS MORNING SERVICER COIN MACHINES . DENIES N/V/D; SKIN IS PINK/WARM/DRY; AAOX4 WITH EVEN AND STEADY GAIT; LUNGS CLEAR BL; HR EVEN AND REGULAR; PT DENIES ANY FEVER, CP, SOB, OR COUGH AT THIS TIME; PATIENT STATES PAIN OF 0/10 AT THIS TIME; VSS; PATIENT POSITIONED FOR COMFORT; HOB ELEVATED; BEDRAILS UP X2; BED DOWN. ER MD MADE AWARE OF PT STATUS.
--- NOTE | 2019-11-21 09:20 | NUR ---
Patient being evaluated by Dr. Sumner at bedside.
[2019-11-21] MEDS ORDERED: NACL 0.9% 1,000 ML IV SCH (09:22)
[2019-11-21] MEDS ORDERED: METO25TA PO (09:22)
[2019-11-21] MEDS ORDERED: ADENOSINE 6 MG/2 ML VIAL IVP ONE (09:25)
--- NOTE | 2019-11-21 09:35 | NUR ---
PT HR DECREASED FROM 160 TO 95 AFTER ADENOSINE GIVEN. PT ALSO STATED HE FEELS BETTER.
[2019-11-21 09:45] LABS: BASOPHILS # (AUTO) 0.1 K/uL (0.00-0.22); BASOPHILS % (AUTO) 0.8 % (0.0-2.0); EOSINOPHILS # (AUTO) 0.2 K/uL (0-0.4); EOSINOPHILS % (AUTO) 2.9 % (0.0-4.0); HEMATOCRIT 38.9 % (36-52); HEMOGLOBIN 12.3 g/dL (12.0-18.0); LYMPHOCYTES # (AUTO) 1.7 K/uL (2.0-11.5); LYMPHOCYTES % (AUTO) 28.2 % (20.5-51.1); MEAN CORPUSCULAR HEMOGLOBIN 27 pg (27-31); MEAN CORPUSCULAR HGB CONC 32 g/dL (33-37); MEAN CORPUSCULAR VOLUME 86.6 fL (80-94); MONOCYTES # (AUTO) 0.6 K/uL (0.8-1.0); MONOCYTES % (AUTO) 9.3 % (1.7-9.3); NEUTROPHILS # (AUTO) 3.6 K/uL (1.8-7.7); NEUTROPHILS % (AUTO) 58.8 % (42.2-75.2); PLATELET COUNT (AUTO) 314 K/uL (140-450); RED CELL DISTRIBUTION WIDTH 14.1 % (11.6-13.7); WHITE BLOOD COUNT (AUTO) 6.2 K/uL (4.8-10.8)
[2019-11-21 10:04] LABS: CARBON DIOXIDE 29.3 mmol/L (21-32); CREATININE 1.1 mg/dL (0.7-1.3); TOTAL BILIRUBIN 0.4 mg/dL (0.0-1.0)
[2019-11-21 10:05] LABS: ALBUMIN 3.7 g/dL (3.4-5.0)
[2019-11-21 10:10] LABS: ANION GAP 10.8 (8-16); POTASSIUM 4.1 mmol/L (3.5-5.1)
[2019-11-21 10:13] LABS: PROTHROMBIN TIME 9.6 secs (10.8-13.4)
--- NOTE | 2019-11-21 10:39 | NUR ---
PT STAYING IN BED. HR IN NORMAL RANGE. DENIES CHEST PAIN, SOB OR PALIPITATION.
[2019-11-21 11:25] VITALS: BP 121/81
--- NOTE | 2019-11-21 11:26 | NUR ---
Patient discharged with v/s stable. Written and verbal after care instructions given and explained. Patient verbalized understanding. Ambulatory with steady gait. All questions addressed prior to discharge. Advised to follow up with PMD. Addendum: 11/21/19 at 1202 by FERN EXPALINED TO PT HE NEEDS TO F/U [facility] PCP DUE TO HIS X-RAY REPORT. HIGHLIGHTED F/U NOTES. PT VERBALIZED UNDERSTANFING, CD GIVEN TO PT.
== END 2019-11-21 11:26 | disposition home or self-care (01) ==
LOC: MED 09:06
DX: I47.1 Supraventricular tachycardia (principal); R00.2 Palpitations; I10 Essential (primary) hypertension
CPT/HCPCS: 36415; 71045; 80053; 83880; 84484; 85025; 85610; 85730; 96361; 96374; 99284; J0153; J7030; Q0092; 93005

== ENCOUNTER 2020-02-11 09:28 | Emergency (ER) | payer MEDICARE, OTHER ==
[~2020-02-11] VITALS: Ht 188 cm; Wt 122.5 kg
[~2020-02-11 09:28] MED LIST changes: -BICA50TA47 PO; -HYDR2TAB6 PO; -METO-251 PO; +METO25TA PO
[2020-02-11 09:34] VITALS: BP 107/69
[2020-02-11] MEDS ORDERED: ADENOSINE 6 MG/2 ML VIAL IVP ONE ×3 (09:47→11:30)
[2020-02-11 10:06] LABS: BASOPHILS % (AUTO) 0.5 % (0.0-2.0); EOSINOPHILS # (AUTO) 0.2 K/uL (0-0.4); EOSINOPHILS % (AUTO) 2.8 % (0.0-4.0); HEMATOCRIT 38.2 % (36-52); HEMOGLOBIN 12.1 g/dL (12.0-18.0); LYMPHOCYTES # (AUTO) 2.1 K/uL (2.0-11.5); LYMPHOCYTES % (AUTO) 33.7 % (20.5-51.1); MEAN CORPUSCULAR HEMOGLOBIN 27 pg (27-31); MEAN CORPUSCULAR HGB CONC 32 g/dL (33-37); MEAN CORPUSCULAR VOLUME 85.8 fL (80-94); MONOCYTES # (AUTO) 0.6 K/uL (0.8-1.0); MONOCYTES % (AUTO) 10.3 % (1.7-9.3); NEUTROPHILS # (AUTO) 3.3 K/uL (1.8-7.7); NEUTROPHILS % (AUTO) 52.7 % (42.2-75.2); PLATELET COUNT (AUTO) 332 K/uL (140-450); RED BLOOD CELL COUNT(AUTO) 4.45 MIL/uL (4.20-6.10); RED CELL DISTRIBUTION WIDTH 13.8 % (11.6-13.7); WHITE BLOOD COUNT (AUTO) 6.2 K/uL (4.8-10.8)
[2020-02-11 10:26] LABS: ALBUMIN 3.7 g/dL (3.4-5.0); ANION GAP 12.3 (8-16); CARBON DIOXIDE 26.4 mmol/L (21-32); CREATININE 1.2 mg/dL (0.6-1.3); POTASSIUM 3.7 mmol/L (3.5-5.1); TOTAL BILIRUBIN 0.4 mg/dL (0.0-1.0)
[2020-02-11 11:32] VITALS: BP 126/72
== END 2020-02-11 11:32 | disposition home or self-care (01) ==
LOC: MED 09:28
DX: R00.2 Palpitations (principal); I10 Essential (primary) hypertension; I47.1 Supraventricular tachycardia; Z85.850 Personal history of malignant neoplasm of thyroid; Z79.899 Other long term (current) drug therapy
CPT/HCPCS: 36415; 71045; 80053; 83880; 84443; 84484; 85025; 93005; 96374; 99291; J0153; Q0092

== ENCOUNTER 2020-05-31 07:52 | Emergency (ER) | payer MEDICARE, OTHER ==
[~2020-05-31] VITALS: Ht 188 cm; Wt 113.4 kg
[2020-05-31 07:57] VITALS: BP 100/83
--- NOTE | 2020-05-31 08:03 | NUR ---
PATIENT WHEELCHAIR ASSISTED TO BED 6.
--- NOTE | 2020-05-31 08:10 | NUR ---
DR SIFUENTES MADE AWARE PT HR 160
[2020-05-31] MEDS ORDERED: NACL 0.9% 1,000 ML IV ONE (08:15)
--- NOTE | 2020-05-31 08:15 | NUR ---
DR SIFUENTES AT BEDSIDE
--- NOTE | 2020-05-31 08:15 | NUR ---
69 YEAR OLD MALE COMPLAINS OF RACING HEART PALPITATIONS, PT STATES THAT HE HAS PREVIOUS HISTORY OF THIS HAPPENING TO HIM. PT STATES HE FEELS A BIT DIZZY WELL. PT DENIES FALLING. PT DENIES CHEST PAIN OR SOB. PT AOX4, BREATHING EVEN AND UNLABORED, SKIN WARM AND DRY. BED IN LOWEST POSITION, LOCKED, BED RAIL UP.X1 PMH - SVT, HTN, THYROID CANCER ALLERGIES - NKA
--- NOTE | 2020-05-31 08:19 | NUR ---
DR SIFUENTES AT BEDSIDE
[2020-05-31] MEDS ORDERED: ADENOSINE 6 MG/2 ML VIAL IVP ONE ×2 (08:21→08:35)
--- NOTE | 2020-05-31 08:27 | NUR ---
PT STATES HE FEELS MUCH BETTER, HR 96, SPO2 98%. DR SIFUENTES REMAINS AT BEDSIDE
--- NOTE | 2020-05-31 08:27 | NUR ---
ADENOSINE 6MG PUSHED AND FLUSHED WITH 20ML NS, GIVEN WITHIN 3 SECONDS
--- NOTE | 2020-05-31 08:55 | NUR ---
PT ALERT AND AWAKE, BREATHING EVEN AND UNLABORED. NO DISTRESS NOTED. WILL CONTINUE TO MONITOR
[2020-05-31 08:57] LABS: BASOPHILS # (AUTO) 0.1 K/uL (0.00-0.22); BASOPHILS % (AUTO) 0.9 % (0.0-2.0); EOSINOPHILS # (AUTO) 0.2 K/uL (0-0.4); EOSINOPHILS % (AUTO) 3.3 % (0.0-4.0); HEMATOCRIT 38.6 % (36-52); HEMOGLOBIN 12.2 g/dL (12.0-18.0); LYMPHOCYTES # (AUTO) 1.9 K/uL (2.0-11.5); LYMPHOCYTES % (AUTO) 31.7 % (20.5-51.1); MEAN CORPUSCULAR HEMOGLOBIN 27 pg (27-31); MEAN CORPUSCULAR HGB CONC 32 g/dL (33-37); MEAN CORPUSCULAR VOLUME 86.6 fL (80-94); MONOCYTES # (AUTO) 0.6 K/uL (0.8-1.0); MONOCYTES % (AUTO) 9.8 % (1.7-9.3); NEUTROPHILS # (AUTO) 3.2 K/uL (1.8-7.7); NEUTROPHILS % (AUTO) 54.3 % (42.2-75.2); PLATELET COUNT (AUTO) 283 K/uL (140-450); RED BLOOD CELL COUNT(AUTO) 4.46 MIL/uL (4.20-6.10); RED CELL DISTRIBUTION WIDTH 13.6 % (11.6-13.7)
[2020-05-31 09:39] LABS: CREATINE KINASE MB 0.5 ng/mL (0-3.6)
[2020-05-31 10:01] LABS: ANION GAP 16.2 (8-16); CARBON DIOXIDE 21.6 mmol/L (21-32); CREATININE 1.2 mg/dL (0.6-1.3); POTASSIUM 3.8 mmol/L (3.5-5.1)
[2020-05-31 10:06] LABS: ALBUMIN 3.7 g/dL (3.4-5.0); TOTAL BILIRUBIN 0.3 mg/dL (0.0-1.0)
--- NOTE | 2020-05-31 10:14 | NUR ---
PT ALERT AND AWAKE, BREATHING EVEN AND UNLABORED. NO DISTRESS NOTED. WILL CONTINUE TO MONITOR
--- NOTE | 2020-05-31 10:20 | NUR ---
DPatient discharged with v/s stable. Written and verbal after care instructions about supraventricular tachycardia given and explained. Patient verbalized understanding. Ambulatory with steady gait. All questions addressed prior to discharge. Advised to follow up with Angle Bender, referal given
[2020-05-31 10:23] VITALS: BP 117/81
== END 2020-05-31 10:20 | disposition home or self-care (01) ==
LOC: MED 07:52
DX: I47.1 Supraventricular tachycardia (principal); R00.2 Palpitations; I10 Essential (primary) hypertension; I51.89 Other ill-defined heart diseases; Z85.9 Personal history of malignant neoplasm, unspecified; Z79.899 Other long term (current) drug therapy
CPT/HCPCS: 36415; 71045; 80053; 82550; 82553; 83735; 84484; 85025; 92960; 93005; 96374; 99291; J0153; J7030; Q0092